=== PATIENT | male | born 2005 | race Caucasian/White ===

== ENCOUNTER 2024-04-28 22:48 | Emergency (ER) | payer BC, SELFPAY ==
[2024-04-28 22:54] VITALS: BP 151/92; PULSE 75; RESP 18; TEMP 37; O2SAT 100; BMI 34.7
[2024-04-28 23:45] VITALS: BP 146/96; PULSE 89; RESP 20; TEMP 36.8; O2SAT 98
--- NOTE | 2024-04-28 23:45 | ED_ITS ---
Discharge Plan Disposition Patient Disposition: Home, Self-Care Condition: Good Prescriptions Prescriptions: New prednisone 50 mg tablet 50 mg PO DAILY 4 Days Qty: 4 0RF Referrals Follow up/Referrals: Provider,Referral, MD [Primary Care Provider] - See instructions Activity Restrictions/Add. Instructions Additional Instructions/Restrictions: You were evaluated in the ER and are appropriate for discharge at this time. Take the prescribed prednisone as directed. Also take an [id number] antihistamine such as Claritin, Zyrtec. You can take Benadryl if needed but this medication may make you sleepy. Make an appointment with your primary care doctor for reevaluation in 2 to 3 days. Return to the ER with any new, worsening, or otherwise concerning symptoms as discussed. Clinical Impressions Clinical Impression: Acute urticaria, Allergic dermatitis Instructions Patient Instructions: NHAN Kraus Print Language Print Language: Irish Discharge ED Provider: Cb Villanueva Adult HPI General Chief complaint: Skin/Abscess/Foreign Body Stated complaint: rash all over Time Seen by Provider: 04/28/24 22:59 Mode of Arrival: Ambulatory Source of Information: Patient Description of Symptoms (Recalled from ER Triage Doc. by RN): Pt presents for evaluation of a rash to his whole body that started yesterday at 3:30pm. Pt states the rash is itchy. Pt states he has tried taking benadryl. Denies any changes to hygiene, no new foods, or pets History of Present Illness HPI narrative: 19-year-old male who is otherwise healthy presents to the ER for complaints of rash. Patient states he has itchy raised red areas that started on his feet but his progressed to the rest of his body as well. Patient reports no new exposures, no new detergents, lotions, soaps, not sleeping and new sheets, has not moved recently, no new foods, medication or any other environmental exposures. Patient reports he has not taken any medications except melatonin for the rash. He reports no known allergies, he has not had any difficulty breathing or swallowing, no vomiting, no swelling of the lips or tongue. Rash was worse and more itchy after hot shower. No other associated symptoms. Related Data Previous Rx's ?Medication ?Instructions ?Recorded prednisone 50 mg tablet 50 mg PO DAILY 4 days #4 tabs 04/28/24 Allergies Allergy/AdvReac Type Severity Reaction Status Date / Time INGREDIENT: NO KNOWN - NO Allergy Unknown Uncoded 01/24/17 15:15 KNOWN DRUG ALLERGY [facility] Disclaimer: The information contained in this section may have been updated after the patient was seen, as this information can be updated by other users. Social History Smoking Status: Never smoker alcohol intake: current current occupational status: other Travel in the last 8 weeks: None ROS Obtained: Yes Systems reviewed as appropriate & no additional complaints except as documented Per HPI Physical Exam General General appearance: alert and in no apparent distress Head Head exam: atraumatic and normocephalic Eye Eye exam: Present PERRL and EOMI ENT ENT exam: Present mucous membranes moist and other (No mucosal swelling) Neck Neck exam: Present normal inspection and full ROM Chest Chest inspection: Present symmetric chest wall rise Respiratory Respiratory exam: Present normal lung sounds bilaterally; Absent respiratory distress, wheezes or stridor Cardiovascular Cardiovascular exam: Present regular rate and normal rhythm Extremities Exam Extremities exam: Present full ROM Neurological Exam Neurological exam: Present alert and oriented X3; Absent motor sensory deficit Psychiatric Psychiatric exam: Present normal affect and normal mood Skin Skin exam: Present warm, dry and other (Multiple erythematous plaques that are blanching, pruritic, no petechial rash, plaques are present on random areas of the feet, legs, buttocks, trunk, arms, and behind the ears. Urticaria in appearance.) Medical Decision Making Medical Records Screening: Per USPSTF and CDC recommendations, given the prevalence of disease in our region, it is our hospital?s policy to screen for HIV and viral Hepatitis for all patients aged 18 and over and those with ongoing risk factors. Raul Inquiry Pt receiving controlled substance: No Vital Signs: 04/28/24 22:54 04/28/24 23:45 Temperature 98.6 F 98.2 F Temperature Source Oral Oral Pulse Rate 89 Pulse Rate [Right] 75 Respiratory Rate 18 20 Blood Pressure 146/96 H Blood Pressure [Right Arm] 151/92 H Blood Pressure Mean [Right Arm] 111 Blood Pressure Source Automatic Cuff Blood Pressure Source [Right Arm] Automatic Cuff Blood Pressure Position Sitting Blood Pressure Position [Right Arm] Sitting 02 Sat by Pulse Oximetry 100 Oxygen Delivery Method Room Air Room Air Orders (Tests/Meds): ED MEDICATIONS Discontinued Medications Generic Name Dose Route Start Last Admin Trade Name Freq PRN Reason Stop Dose Admin Diphenhydramine HCl 25 mg 04/28/24 23:15 04/28/24 23:49 Diphenhydramine 25mg Capsule PO 04/28/24 23:16 25 mg ONCE ONE Administration Prednisone 40 mg 04/28/24 23:15 04/28/24 23:49 Prednisone 20mg Tab PO 04/28/24 23:16 20 mg ONCE ONE Administration ORDERS Category Date Time Status HIV Combo Routine Lab 04/28/24 23:45 Ordered Hepatitis C Ab Qual. W/ RFX Routine Lab 04/28/24 23:45 Ordered Medical Decision Narrative: In summary, this 19-year-old male presents to the emergency department today with rash. On initial evaluation patient is hemodynamically stable, afebrile, well-appearing, lungs clear bilaterally, no wheezing, no stridor, no angioedema or mucosal swelling, abdomen benign. No evidence of anaphylaxis, no multisystem organ involvement. Differential diagnosis includes but is not limited to urticaria, allergic dermatitis, I had considered possibility of anaphylaxis or other severe allergic reaction but have no evidence of this. I had considered contact dermatitis, among others.. Patient does not require any labs or imaging at this time. He was treated with Benadryl and prednisone and is appropriate for discharge at this time. I prescribed prednisone for outpatient management. He was also given instructions on [id number] antihistamine use as well as symptomatic management, follow-up instructions, and strict return precautions for the ER. He indicated understanding and the patient was discharged in stable condition. Critical Care Critical Care Time Critical Care Time: No
[2024-04-28] MEDS: diphenhydrAMINE 25MG CAPSULE 25 MG PO (23:49)
[2024-04-28] MEDS: predniSONE 20MG TAB 40 MG PO (23:49)
== END 2024-04-28 23:53 | disposition home or self-care (01) ==
PROVIDERS: Emergency Provider Emergency Medicine
DX: L23.9 Allergic contact dermatitis, unspecified cause (principal); R21 Rash and other nonspecific skin eruption
CPT/HCPCS: 99283